=== PATIENT | male | born 2000 | race Hispanic/Latino ===

== ENCOUNTER 2021-02-07 03:20 | Emergency (ER) | payer OTHER ==
[2021-02-07] MEDS ORDERED: LIDOCAINE HCL 1% 20 ML VIAL ONE (04:03)
== END 2021-02-07 04:33 | disposition home or self-care (01) ==
LOC: EDH 03:20
DX: T16.9XXA Foreign body in ear, unspecified ear, initial encounter (principal); X58.XXXA Exposure to other specified factors, initial encounter; Y93.89 Activity, other specified; Y92.89 Other specified places as the place of occurrence of the external cause; Y99.8 Other external cause status
CPT/HCPCS: 69200; 99281